=== PATIENT | female | born 1955 | race Caucasian/White ===

== ENCOUNTER 2022-11-03 20:35 | Emergency (ER) | payer OTHER ==
--- NOTE | 2022-11-03 20:58 | ER ---
Nurse's Notes [facility] Name: Halina Wen Age: 67 yrs Sex: Female : 1955 Arrival Date: 11/03/2022 Time: 20:38 Bed Waiting Private MD: Diagnosis: Essential (primary) hypertension Presentation: 11/03 20:55 Chief complaint: Patient states: high blood pressure. Coronavirus screen: Vaccine kl status: Patient reports receiving the 2nd dose of the covid vaccine. Ebola Screen: Patient negative for fever greater than or equal to 101.5 degrees Fahrenheit, and additional compatible Ebola Virus Disease symptoms. Initial Sepsis Screen: Does the patient meet any 2 criteria? No. Patient's initial sepsis screen is negative. Does the patient have a suspected source of infection? No. Patient's initial sepsis screen is negative. Risk Assessment: Do you want to hurt yourself or someone else? Patient reports no desire to harm self or others. 20:55 Method Of Arrival: Ambulatory 20:55 Acuity: JULIA 5 Vital Signs: 20:55 BP 183 / 66; Pulse 76; Resp 18; Temp 98.3(TE); Pulse Ox 97% on R/A; Pain 0/10; kl 20:55 Pain Scale: Adult ED Course: 20:38 Patient arrived in ED. [email or web address] 20:40 Ancelmo Galindo DO is Attending Physician. ms3 20:56 Triage completed. Administered Medications: No medications were administered Outcome: 20:57 Discharge ordered by . ms3 Signatures: Ashly Pruett RN JOE Ancelmo Galindo DO DO ms3 Yvonne Guardado [email or web address]
--- NOTE | 2022-11-03 20:58 | EDPHYS ---
Physician Documentation [facility] Name: Halina Wen Age: 67 yrs Sex: Female : 1955 Arrival Date: 11/03/2022 Time: 20:38 Bed Waiting Private MD: ED Physician Ancelmo Galindo Vital Signs: 11/03 20:55 BP 183 / 66; Pulse 76; Resp 18; Temp 98.3(TE); Pulse Ox 97% on R/A; Pain 0/10; kl 20:55 Pain Scale: Adult kl MDM: 20:54 Patient medically screened. ms3 Administered Medications: No medications were administered Disposition Summary: 11/03/22 20:57 Discharge Ordered Location: Home ms3 Condition: Stable ms3 Diagnosis - Essential (primary) hypertension ms3 Followup: ms3 - With: Private Physician - When: 2 - 3 days - Reason: Recheck today's complaints Discharge Instructions: - Discharge Summary Sheet ms3 - Hypertension, Adult ms3 Forms: - Medication Reconciliation Form ms3 - Thank You Letter ms3 - Antibiotic Education ms3 - Prescription Opioid Use ms3 Signatures: Ancelmo Galindo, DO ms3
[2022-11-04 00:44] VITALS: TEMP 98.3; O2SAT 97
[2022-11-04 00:45] VITALS: BP 163/67
== END 2022-11-03 21:08 | disposition home or self-care (01) ==
LOC: ER 20:35
DX: I10 Essential (primary) hypertension (principal)
CPT/HCPCS: 99281

== ENCOUNTER 2024-08-16 12:47 | Emergency (ER) | payer BC ==
[2024-08-16] MEDS ORDERED: NA CHLORIDE 0.9% 1,000 ML ONE (16:00)
[2024-08-16 16:10] LABS: Absolute Basophils 0.1 K/uL (0-0.5); Absolute Eosinophils 0.3 K/uL (0-0.5); Absolute Lymphocytes (CBC) 2.2 K/uL (0.7-4.9); Absolute Monocytes 1.1 K/uL (0.1-1.3); Absolute Neutrophil 10.4 K/uL (1.8-8.0); Basophils % 0.9 % (0-1.3); Eosinophils % 2.2 % (0-4.4); Hematocrit 44.3 % (36.0-45.0); Hemoglobin 14.1 g/dL (12.0-15.0); Lymphocytes % 15.3 % (15.3-44.8); MCH 32.1 pg (27.0-35.0); MCHC 31.9 g/dL (32.0-36.0); MCV 100.5 fL (80-100); MPV 9.2 fL (7.6-11.3); Monocytes % 7.8 % (3.3-12.3); Neutrophils % 73.8 % (41.7-73.7); Nucleated Red Blood Cells % 0.1 % (0-0); Platelets 211 thou/uL (152-406); RBC Red Blood Cell Count 4.41 M/uL (3.86-4.86); Red Cell Distribution Width 14.7 % (12.1-15.2)
[2024-08-16 16:21] LABS: PT Prothrombin Time 16.5 SECONDS (9.4-12.5); Protime INR 1.49
--- NOTE | 2024-08-16 17:50 | ER ---
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 hb Coronavirus screen: Client presents with at least one sign or symptom that may indicate coronavirus-19. Provider contacted for isolation considerations. Ebola Screen: No symptoms or risks identified at this time. Initial Sepsis Screen: Does the patient meet any 2 criteria? No. Patient's initial sepsis screen is negative. Does the patient have a suspected source of infection? No. Patient's initial sepsis screen is negative. Risk Assessment: Do you want to hurt yourself or someone else? Patient reports no desire to harm self or others. Onset of symptoms was August 13, 2024. 13:05 Method Of Arrival: Ambulatory hb 13:05 Acuity: JULIA 4 hb Triage Assessment: 13:10 General: Appears in no apparent distress. comfortable, Behavior is calm, cooperative. rs5 Historical: - Allergies: 13:06 No Known Allergies; hb - PMHx: 13:06 CAD; Hypertensive disorder; PVD; hb 13:07 HTN; hb - PSHx: 13:06 multiple stents; hb - Immunization history:: Adult Immunizations up to date. - Infectious Disease History:: Denies. - Social history:: Smoking status: Patient reports the use of cigarette tobacco products, smokes one-half pack cigarettes per day. - Family history:: not pertinent. Screenin:00 [facility] ED Fall Risk Assessment (Adult) History of falling in the last 3 months, rs5 including since admission No falls in past 3 months (0 pts) Confusion or Disorientation No (0 pts) Intoxicated or Sedated No (0 pts) Impaired Gait No (0 pts) Mobility Assist Device Used No (0 pt) Altered Elimination No (0 pt) Score/Fall Risk Level 0 - 2 = Low Risk Oriented to surroundings, Maintained a safe environment. Abuse screen: Denies threats or abuse. Nutritional screening: No deficits noted. Tuberculosis screening: No symptoms or risk factors identified. Assessment: 13:05 General: Appears in no apparent distress. uncomfortable, Behavior is calm, cooperative. rs5 Pain: Denies pain. Neuro: Level of Consciousness is awake, alert, obeys commands, Oriented to person, place, time, situation. Cardiovascular: Patient's skin is warm and dry. Respiratory: Airway is patent Respiratory effort is even, unlabored, Respiratory pattern is regular, symmetrical. GI: Abdomen is round non-distended, Abd is soft and non tender X 4 quads. : No signs and/or symptoms were reported regarding the genitourinary system. EENT: Reports bleeding from nose. 13:05 Derm: Skin is intact, Skin is pink, warm \T\ dry. Musculoskeletal: Range of motion: rs5 intact in all extremities. 13:10 Reassessment: no active bleeding noted. rs5 14:15 Reassessment: Patient and/or family updated on plan of care and expected duration. Pain rs5 level reassessed. Patient is alert, oriented x 3, equal unlabored respirations, skin warm/dry/pink. 15:50 Reassessment: Patient and/or family updated on plan of care and expected duration. Pain rs5 level reassessed. Patient is alert, oriented x 3, equal unlabored respirations, skin warm/dry/pink. 17:10 Reassessment: Patient and/or family updated on plan of care and expected duration. Pain rs5 level reassessed. Patient is alert, oriented x 3, equal unlabored respirations, skin warm/dry/pink. 18:10 Reassessment: Patient and/or family updated on plan of care and expected duration. Pain rs5 level reassessed. Patient is alert, oriented x 3, equal unlabored respirations, skin warm/dry/pink. Vital Signs: 13:05 BP 176 / 105; Pulse 89; Resp 20; Temp 98.7(TE); Pulse Ox 96% on R/A; Weight 81.65 kg; hb Height 5 ft. 3 in. ; Pain 3/10; 18:30 BP 155 / 88; Pulse 81; Resp 17; Pulse Ox 95% on R/A; rs5 13:05 Body Mass Index 31.89 (81.65 kg, 160.02 cm) hb 13:05 Pain Scale: Adult hb ED Course: 12:49 Patient arrived in ED. mr 13:06 Triage completed. hb 13:07 Arm band placed on. hb 13:19 Domingo Diaz MD is Attending Physician. paige 16:02 PT-INR Sent. cc6 16:02 Comprehensive Metabolic Panel Sent. cc6 16:02 CBC with Diff Sent. cc6 16:02 Initial lab(s) drawn, by me, sent to lab. Inserted saline lock: 20 gauge in right cc6 antecubital area, using aseptic technique. Blood collected. Flushed with 10 mL NS. 17:14 Comprehensive Metabolic Panel Sent. ss 17:49 Hanny Canada MD is Referral Physician. paige 18:30 Patient has correct armband on for positive identification. Placed in gown. Bed in low rs5 position. Call light in reach. Side rails up X2. 18:30 No provider procedures requiring assistance completed. rs5 18:30 IV discontinued, intact, bleeding controlled, No redness/swelling at site. Pressure rs5 dressing applied. 18:35 Endy Delgado, RN is Primary Nurse. rs5 18:35 Provided Education on: discharge instructions . rs5 Administered Medications: 16:08 Drug: NS 0.9% IV 500 ml 500 ml IV at 1 bolus once; to be given as a bolus over 30 hb minutes Volume: 500 ml; Route: IV; Rate: 1 bolus; Site: right antecubital; 17:13 Follow up: IV Status: Completed infusion; IV Intake: 500ml ss 17:30 Drug: Cabgtmiw-Gstcgdjouc-Zrlgoyiaj Topical Ointment 1 application Topical once {Note: rs5 nostrils.} Route: Topical; Site: affected area; 17:30 Drug: Amoxicillin-Clavulanate PO 875 mg PO once Route: PO; rs5 18:22 Follow up: Response: No adverse reaction rs5 17:45 Drug: Norvasc PO 10 mg PO once Route: PO; rs5 18:30 Follow up: Response: No adverse reaction rs5 18:00 Drug: Potassium PO Effervescent Tablet 50 mEq PO once; dissolve in 4 ounces of water or rs5 juice Route: PO; 18:40 Follow up: Response: No adverse reaction rs5 18:00 Drug: Potassium PO Effervescent Tablet 25 mEq PO once; dissolve in 4 ounces of water or rs5 juice Route: PO; 18:33 Follow up: Response: No adverse reaction rs5 Medication: 18:30 VIS not applicable for this client. rs5 Intake: 17:13 IV: 500ml; Total: 500ml. Outcome: 17:49 Discharge ordered by . paige 18:34 Discharged to home ambulatory, rs5 18:34 Condition: stable rs5 18:34 Discharge instructions given to patient, family, Instructed on discharge instructions, follow up and referral plans. medication usage, Demonstrated understanding of instructions, follow-up care, medications, Prescriptions given X 4, 18:35 Patient left the ED. rs5 Signatures: Domingo Diaz MD MD cha Rivera, Mary, Reg Reg mr Onelia Alegria RN RN Keri Amador RN RN Endy Goodson RN RN rs5 Jeane Bowman cc6 Corrections: (The following items were deleted from the chart) 13:07 13:06 PMHx: HTN (multiple stents); hb hb
--- NOTE | 2024-08-16 17:50 | EDPHYS ---
Physician Documentation [facility] Name: Halina Wen Age: 69 yrs Sex: Female : 1955 Arrival Date: 08/16/2024 Time: 12:47 Bed DX5 Private MD: ED Physician Domingo Diaz HPI: 08/16 17:46 This 69 yrs old Female presents to ER via Ambulatory with complaints of Nose paige Bleed. 17:46 The patient presents with a nose bleed, that is apparently anterior. Onset: The paige symptoms/episode began/occurred just prior to arrival, today. Modifying factors: The symptoms are alleviated by nothing. the symptoms are aggravated by nothing. Associated signs and symptoms: The patient has no apparent associated signs or symptoms. Severity of symptoms: At their worst the symptoms were mild in the emergency department the symptoms have resolved and did so just prior to arrival. The patient has experienced similar episodes in the past, several times. Historical: - Allergies: 13:06 No Known Allergies; hb - PMHx: 13:06 CAD; Hypertensive disorder; PVD; hb 13:07 HTN; hb - PSHx: 13:06 multiple stents; hb - Immunization history:: Adult Immunizations up to date. - Infectious Disease History:: Denies. - Social history:: Smoking status: Patient reports the use of cigarette tobacco products, smokes one-half pack cigarettes per day. - Family history:: not pertinent. ROS: 17:46 Constitutional: Negative for fever, chills, and weight loss, Eyes: Negative for injury, paige pain, redness, and discharge, Neck: Negative for injury, pain, and swelling, Cardiovascular: Negative for chest pain, palpitations, and edema, Respiratory: Negative for shortness of breath, cough, wheezing, and pleuritic chest pain, Abdomen/GI: Negative for abdominal pain, nausea, vomiting, diarrhea, and constipation, Back: Negative for injury and pain, MS/Extremity: Negative for injury and deformity, Skin: Negative for injury, rash, and discoloration, Neuro: Negative for headache, weakness, numbness, tingling, and seizure, Psych: Negative for depression, anxiety, suicide ideation, homicidal ideation, and hallucinations, Allergy/Immunology: Negative for hives, rash, and allergies, Endocrine: Negative for neck swelling, polydipsia, polyuria, polyphagia, and marked weight changes, Hematologic/Lymphatic: Negative for swollen nodes, abnormal bleeding, and unusual bruising, 17:46 ENT: Positive for nose bleed, Exam: 17:46 Constitutional: This is a well developed, well nourished patient who is awake, alert, paige and in no acute distress. Head/Face: Normocephalic, atraumatic. Eyes: Pupils equal round and reactive to light, extra-ocular motions intact. Lids and lashes normal. Conjunctiva and sclera are non-icteric and not injected. Cornea within normal limits. Periorbital areas with no swelling, redness, or edema. Neck: Trachea midline, no thyromegaly or masses palpated, and no cervical lymphadenopathy. Supple, full range of motion without nuchal rigidity, or vertebral point tenderness. No Meningismus. Chest/axilla: Normal chest wall appearance and motion. Nontender with no deformity. No lesions are appreciated. Cardiovascular: Regular rate and rhythm with a normal S1 and S2. No gallops, murmurs, or rubs. Normal PMI, no JVD. No pulse deficits. Respiratory: Lungs have equal breath sounds bilaterally, clear to auscultation and percussion. No rales, rhonchi or wheezes noted. No increased work of breathing, no retractions or nasal flaring. Abdomen/GI: Soft, non-tender, with normal bowel sounds. No distension or tympany. No guarding or rebound. No evidence of tenderness throughout. Back: No spinal tenderness. No costovertebral tenderness. Full range of motion. Skin: Warm, dry with normal turgor. Normal color with no rashes, no lesions, and no evidence of cellulitis. MS/ Extremity: Pulses equal, no cyanosis. Neurovascular intact. Full, normal range of motion., bilateral aka Neuro: Awake and alert, GCS 15, oriented to person, place, time, and situation. Cranial nerves II-XII grossly intact. Motor strength 5/5 in all extremities. Sensory grossly intact. Cerebellar exam normal. Normal gait. Psych: Awake, alert, with orientation to person, place and time. Behavior, mood, and affect are within normal limits. 17:46 ENT: Nose: Nasal mucosa: edematous, erythematous, Posterior pharynx: no acute changes, Airway: normal, no evidence of obstruction, Tonsils: are normal in appearance, Uvula: normal, swelling, is not appreciated, Vital Signs: 13:05 BP 176 / 105; Pulse 89; Resp 20; Temp 98.7(TE); Pulse Ox 96% on R/A; Weight 81.65 kg; hb Height 5 ft. 3 in. ; Pain 3/10; 18:30 BP 155 / 88; Pulse 81; Resp 17; Pulse Ox 95% on R/A; rs5 13:05 Body Mass Index 31.89 (81.65 kg, 160.02 cm) hb 13:05 Pain Scale: Adult hb MDM: 13:19 Medical Screening Exam initiated paige 17:47 Differential diagnosis: spontaneous epistaxis. Data reviewed: vital signs, nurses [facility] notes, lab test result(s). Consideration of Admission/Observation Escalation of care including admission/observation considered. I considered the following discharge prescriptions or medication management in the emergency department Medications were administered in the Emergency Department. See MAR. Test considered but Not performed: CT: NO CT SINUS. Historians other than the Patient: PT WELL INFORMED. Care significantly affected by the following chronic conditions: Hypertension, Obesity, PVD, CAD. 08/16 13:20 Order name: CBC with Diff; Complete Time: 17:38 [facility] 08/16 13:20 Order name: Comprehensive Metabolic Panel; Complete Time: 18:04 [facility] 08/16 13:20 Order name: PT-INR; Complete Time: 17:38 [facility] 08/16 16:20 Order name: Labs - recollect needed: recollect green top/ per lorna hemolyzed; eb Complete Time: 17:13 08/16 18:05 Order name: PO challenge: JUICE; Complete Time: 18:44 [facility] Administered Medications: 16:08 Drug: NS 0.9% IV 500 ml 500 ml IV at 1 bolus once; to be given as a bolus over 30 hb minutes Volume: 500 ml; Route: IV; Rate: 1 bolus; Site: right antecubital; 17:13 Follow up: IV Status: Completed infusion; IV Intake: 500ml ss 17:30 Drug: Ezsagvsq-Vgxqrdrslz-Cmmgshrox Topical Ointment 1 application Topical once {Note: rs5 nostrils.} Route: Topical; Site: affected area; 17:30 Drug: Amoxicillin-Clavulanate PO 875 mg PO once Route: PO; rs5 18:22 Follow up: Response: No adverse reaction rs5 17:45 Drug: Norvasc PO 10 mg PO once Route: PO; rs5 18:30 Follow up: Response: No adverse reaction rs5 18:00 Drug: Potassium PO Effervescent Tablet 50 mEq PO once; dissolve in 4 ounces of water or rs5 juice Route: PO; 18:40 Follow up: Response: No adverse reaction rs5 18:00 Drug: Potassium PO Effervescent Tablet 25 mEq PO once; dissolve in 4 ounces of water or rs5 juice Route: PO; 18:33 Follow up: Response: No adverse reaction rs5 Disposition Summary: 08/16/24 17:49 Discharge Ordered Notes: Location: Home paige Problem: new paige Symptoms: have improved paige Condition: Stable paige Diagnosis - 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 paige - Essential (primary) hypertension paige - Hypokalemia paige Followup: paige - With: Private Physician - When: 2 - 3 days - Reason: Recheck today's complaints, Continuance of care, Re-evaluation by your physician Followup: paige - With: Hanny Canada MD - When: 2 - 3 days - Reason: Recheck today's complaints, Re-evaluation by your physician Discharge Instructions: - Discharge Summary Sheet paige - Potassium Content of Foods paige - Nosebleed, Adult paige - Hypertension, Adult paige - Cool Mist Vaporizer paige - Hypertension, Adult, Ehie-nh-Ehem paige - How to Take Your Blood Pressure, Eqxu-ly-Tidf paige - Nosebleed, Adult, Zvtj-ix-Sgza paige - Hypokalemia paige - Managing Your Hypertension [facility] Forms: - Medication Reconciliation Form paige - Antibiotic Education paige - Prescription Opioid Use paige - Patient Portal Instructions [facility] - Leadership Thank You Letter [facility] Prescriptions: - Neosporin (xfx-xih-quyqk) 3.5mg-400 unit- 5,000 unit/gram Topical ointment - apply 1 application TOPICAL route 3 times per day RIGHT NARES; 15 gram tube; paige Refills: 0, Product Selection Permitted - Augmentin 875-125 mg Oral Tablet - take 1 tablet ORAL route every 12 hours for 10 days; 20 tablet; Refills: 0, paige Product Selection Permitted - Norvasc 5 mg Oral Tablet - take 1 tablet ORAL route once daily; 20 tablet; Refills: 0, Product Selection paige Permitted - Potassium Chloride 20 meq Oral Packet - take 1 packet ORAL route every 12 hours 1 packet in 6 (six) ounces of water or paige juice; Take after meal; 14 packet; Refills: 0, Product Selection Permitted Signatures: Dispatcher [employer] Domingo Roldan MD MD cha Baxter, Heather, RN RN Lucina Caicedo Ricky, RN RN rs5 Onelia Alegria RN ss Corrections: (The following items were deleted from the chart) 13:07 13:06 PMHx: HTN (multiple stents); hb hb
[2024-08-16 17:55] LABS: AST/SGOT 12 U/L (15-37); Albumin 2.3 g/dL (3.4-5.0); Albumin/Globulin Ratio 0.5 (1.1-1.8); Alkaline Phosphatase 91 U/L (45-117); Anion Gap 6.6 mEq/L (5.0-15.0); BUN Blood Urea Nitrogen 13 mg/dL (7-18); Bicarbonate 32 mEq/L (21-32); Bilirubin Total 0.4 mg/dL (0.2-1.0); Globulin 4.4 g/dL (2.3-3.5); Glomerular Filtration Rate 80 ml/min (=/>90); Glucose Level 130 mg/dL (74-106); Protein, Total 6.7 g/dL (6.4-8.2); Sodium Level 139 mEq/L (136-145)
[2024-08-16 17:57] LABS: ALT/SGPT < 14 U/L (13-56)
[2024-08-16 17:59] LABS: Potassium 2.6 mEq/L (3.5-5.1)
[2024-08-16] MEDS ORDERED: AMLODIPINE 10 MG TAB ONE (18:06)
[2024-08-16] MEDS ORDERED: AMOX/K CLAV 875 MG TAB ONE (18:06)
[2024-08-16] MEDS ORDERED: BACI/NEOMYCIN/POLY OINT 15GM TOP ONE (18:06)
[2024-08-16] MEDS ORDERED: POTASSIUM 25 MEQ EFFERV TAB ONE ×2 (18:07→18:13)
[2024-08-16 20:10] VITALS: BP 176/105; TEMP 98.7; O2SAT 96
== END 2024-08-16 18:35 | disposition home or self-care (01) ==
LOC: ER 12:47
DX: R04.0 Epistaxis (principal); Z79.01 Long term (current) use of anticoagulants; I10 Essential (primary) hypertension; E87.6 Hypokalemia; F17.210 Nicotine dependence, cigarettes, uncomplicated
CPT/HCPCS: 36415; 80053; 85025; 85610; 96360; 99284; J7030

== ENCOUNTER 2024-12-23 19:41 | Emergency (ER) | payer BC ==
--- OUTSIDE RECORDS SUMMARY | 2024-12-23 19:44 | XMS REPORT | Continuity of Care Document ---
Author Name Unknown Address [address] [facility] [address] [place] [address] [facility] Address [address] [facility] [place] [address] Care Team Providers Care Inventory Management Specialist Name Role Phone Fausto LOVELACE, Pito Burr Primary Care Physician SANTOSH WILKERSON Attending Clinician Unavailable Medications Ordered Medication Name Filled Medication Name Start Date Stop Date Current Medication? Ordering Clinician Indication Dosage Frequency Signature (SIG) Comments Components Source Advair Diskus 250 mcg-50 mcg/dose powder for inhalation 10-30 00:00: 00 Yes 1mcg/do se Henok Bee metoprolol succinate ER 100 mg tablet,exte nded release 24 hr 09-03 00:00: 00 Yes 1mg Henok Bee clopidogrel 75 mg tablet 09-03 00:00: 00 Yes 1mg Henok Bee isosorbide mononitrate ER 120 mg tablet,exte nded release 24 hr 09-03 00:00: 00 Yes 1mg Henok Bee hydrochloro thiazide 25 mg tablet 09-03 00:00: 00 Yes 1mg Henok Bee escitalopra m 10 mg tablet 09-03 00:00: 00 Yes 1mg Henok Bee rosuvastati n 5 mg tablet 09-03 00:00: 00 Yes 1mg Henok Bee prednisone 10 mg tablet 09-03 00:00: 00 Yes 1mg Henok Bee levothyroxi ne 200 mcg tablet 09-03 00:00: 00 Yes 1mcg Henok Bee chlorthalid one 25 mg tablet 2023-08- 00:00: 00 Yes mg Henok Bee olmesartan 40 mg tablet 2023-08 00:00: 00 Yes mg Henok Bee Vital Signs Vital Name Observation Time Observation Value Comments S chyna BP Systolic 2024-10-30 09:34:00 173 mm[Hg] Step hen F Rohit BP Diastolic 2024-10-30 09:34:00 67 mm[Hg] Len phen F Rohit Weight Measured 2024-10-30 09:34:00 190.60 pounds Henok F Rohit Height Measured 2024-10-30 09:34:00 63.00 inches Henok Lizzie Bee Body Temperature 2024-10-30 09:34:00 98.50 degrees Henok F Rohit Heart Rate 2024-10-30 09:34:00 55.00 /min Jaymie en F Rohit Respiratory Rate 2024-10-30 09:34:00 14.00 /min Henok F Rohit Respiratory Rate 2024-09-03 14:25:00 18.00 /min Henok F Rohit BP Systolic 2024-09-03 14:25:00 160 mm[Hg] Step hen F Rohit BP Diastolic 2024-09-03 14:25:00 61 mm[Hg] Len phen F Rohit Weight Measured 2024-09-03 14:25:00 186.40 pounds Henokrajni Bee Height Measured 2024-09-03 14:25:00 63.00 inches Henokrajni Bee Body Temperature 2024-09-03 14:25:00 98.00 degrees Henok F Rohit Heart Rate 2024-09-03 14:25:00 64.00 /min Jaymie en F Rohit Encounters Start Date/Time End Date/Time Encounter Type Admission Type Attending [facility] Facility Care Department Encounter ID Source 2024-10-30 09:31:49 2024-10-30 09:31:49 Outpatient [facility] [id number] Henok Bee 2024-10-30 00:00:00 2024-10-30 00:00:00 Outpatient Visit [facility] [id number] Henok Bee 2024-10-06 05:43:00 2024-10-06 05:43:00 Outpatient [facility] [id number] [facility] 2024-09-03 14:21:47 2024-09-03 14:21:47 Outpatient [facility] [id number] Henok Bee 2024-09-03 00:00:00 2024-09-03 00:00:00 Outpatient Visit [facility] [id number] Henok Bee Notes Date/Time Note Provider Source Henok Bee [facility]2025-01-15 00:00:00 Henok Bee [facility]
[2024-12-23] MEDS ORDERED: PANTOPRAZOLE 40 MG INJ ONE (21:02)
[2024-12-23] MEDS ORDERED: NA CHLORIDE 0.9% 250 ML ONE (21:02)
[2024-12-23] MEDS ORDERED: FAMOTIDINE 20 MG/2 ML VIAL IV ONE (21:02)
[2024-12-23 21:07] LABS: Absolute Basophils 0.1 K/uL (0-0.5); Absolute Eosinophils 0.2 K/uL (0-0.5); Absolute Lymphocytes (CBC) 1.7 K/uL (0.7-4.9); Absolute Monocytes 1.1 K/uL (0.1-1.3); Absolute Neutrophil 9.9 K/uL (1.8-8.0); Basophils % 0.7 % (0-1.3); Eosinophils % 1.2 % (0-4.4); Hematocrit 41.2 % (36.0-45.0); Lymphocytes % 13.2 % (15.3-44.8); MCH 32.8 pg (27.0-35.0); MCHC 33.8 g/dL (32.0-36.0); MCV 96.9 fL (80-100); MPV 8.6 fL (7.6-11.3); Monocytes % 8.7 % (3.3-12.3); Neutrophils % 76.2 % (41.7-73.7); Platelets 203 thou/uL (152-406); RBC Red Blood Cell Count 4.25 M/uL (3.86-4.86); Red Cell Distribution Width 16.1 % (12.1-15.2)
[2024-12-23 21:18] LABS: PT Prothrombin Time 16.4 SECONDS (10-13.0); Protime INR 1.46
--- NOTE | 2024-12-23 21:26 | RAD REPORT ---
EXAMINATION: ONE VIEW CHEST XR CLINICAL INDICATION: Female, 69 years old.,CHEST PAIN TECHNIQUE: Frontal chest projection is submitted. Examination is limited by patient positioning and t echnique. COMPARISON: 09/05/2024 FINDINGS: The lungs are well inflated and clear apart from stable left basilar atelectasis. No pneumothorax or sizable effusion. The heart is normal in size. Mediastinal contours are unremarkable. IMPRESSION: No acute intrathoracic abnormalities.
[2024-12-23 21:33] LABS: Albumin 2.7 g/dL (3.4-5.0); Albumin/Globulin Ratio 0.6 (1.1-1.8); Anion Gap 7.4 mEq/L (5.0-15.0); Bilirubin Direct 0.2 mg/dL (0-0.2); Bilirubin Indirect, Calculated 0.3 mg/dL (0.2-0.8); Bilirubin Total 0.5 mg/dL (0.2-1.0); Globulin 4.2 g/dL (2.3-3.5); Magnesium 1.4 mg/dL (1.6-2.4); Potassium 3.4 mEq/L (3.5-5.1); Protein, Total 6.9 g/dL (6.4-8.2); Troponin High Sensitivity 4.1 pg/mL (<58.9)
--- NOTE | 2024-12-24 00:30 | EDPHYS ---
Physician Documentation [facility] Name: Halina Wen Age: 69 yrs Sex: Female : 1955 Arrival Date: 12/23/2024 Time: 19:41 Bed 4 Private MD: ED Physician Pipo De Dios HPI: 12/23 20:05 This 69 yrs old Female presents to ER via Ambulatory with complaints of Chest sp4 Pain, Bloody Stools. 12/24 00:23 69-year-old female presents with 1 week of bloody stools and developing chest pain in sp4 the last 24 hours.. 00:24 Patient states she is on Plavix and Eliquis at home. Patient takes Eliquis 5 mg twice sp4 daily also Plavix 75 mg daily. Historical: - Allergies: 12/23 19:50 No Known Allergies; cp4 - PMHx: 19:50 CAD; HTN; Hypertensive disorder; PVD; cp4 - PSHx: 19:50 multiple stents; cp4 - Immunization history:: Adult Immunizations up to date. - Infectious Disease History:: Denies. - Social history:: Smoking status: Patient reports the use of cigarette tobacco products, smokes one pack cigarettes per day. - Family history:: not pertinent. ROS: 12/24 00:24 Constitutional: Negative for fever, chills, and weight loss, positive bloody stools. sp4 Positive chest pain Eyes: Negative for injury, pain, redness, and discharge, All other systems are negative, Exam: 00:26 Constitutional: This is a well developed, well nourished patient who is awake, alert, sp4 and in no acute distress. Head/Face: Normocephalic, atraumatic. Eyes: Pupils equal round and reactive to light, extra-ocular motions intact. Lids and lashes normal. Conjunctiva and sclera are not injected. Cornea within normal limits. Periorbital areas with no swelling, redness, or edema. ENT: Nares patent. No nasal discharge, no septal abnormalities noted. Tympanic membranes are normal and external auditory canals are clear. Oropharynx with no redness, swelling, or masses, exudates, or evidence of obstruction, uvula midline. Mucous membranes moist. Neck: Trachea midline, no thyromegaly or masses palpated, and no cervical lymphadenopathy. Supple, full range of motion without nuchal rigidity, or vertebral point tenderness. Chest/axilla: Normal chest wall appearance and motion. Nontender with no deformity. No lesions are appreciated. Cardiovascular: Regular rate and rhythm with a normal S1 and S2. No gallops, murmurs, or rubs. Normal PMI, no JVD. No pulse deficits. Respiratory: Lungs have equal breath sounds bilaterally, clear to auscultation and percussion. No rales, rhonchi or wheezes noted. No increased work of breathing, no retractions or nasal flaring. Abdomen/GI: Soft, with normal bowel sounds. No distension or tympany. No guarding or rebound. No evidence of tenderness throughout. Back: No spinal tenderness. No costovertebral tenderness. 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 Normal color with no rashes, no lesions, and no evidence of cellulitis. MS/ Extremity: Pulses equal, no cyanosis. Neurovascular intact. Full, normal range of motion. Neuro: Awake and alert, GCS 15, oriented to person, place, time, and situation. Cranial nerves II-XII grossly intact. Motor strength 5/5 in all extremities. Sensory grossly intact. Psych: Awake, alert, with orientation to person, place and time. Behavior, mood, and affect are within normal limits 00:26 ECG was reviewed by the Attending Physician. EKG 1955 normal Vital Signs: 12/23 19:48 BP 170 / 62; Pulse 74; Resp 20; Temp 98.4; Pulse Ox 92% ; Weight 86.18 kg; Height 5 ft. cp4 3 in. ; Pain 5/10; 21:30 BP 164 / 65; Pulse 68; Resp 18; Pulse Ox 93% ; al5 22:00 BP 170 / 65; Pulse 72; Resp 18; Pulse Ox 92% on R/A; al5 22:30 BP 166 / 59; Pulse 70; Resp 18; Pulse Ox 93% on R/A; al5 23:00 BP 149 / 60; Pulse 77; Resp 18; Pulse Ox 93% ; al5 23:30 BP 187 / 59; Pulse 82; Resp 17; Pulse Ox 94% on R/A; al5 12/24 00:00 BP 143 / 66; Pulse 69; Resp 16; Pulse Ox 93% ; al5 00:30 BP 141 / 53; Pulse 72; Resp 16; Pulse Ox 92% ; al5 12/23 19:48 Body Mass Index 33.66 (86.18 kg, 160.02 cm) cp4 12/23 19:48 Pain Scale: Adult cp4 [place] Coma Score: 00:26 Eye Response: spontaneous(4). Motor Response: obeys commands(6). Verbal Response: sp4 oriented(5). Total: 15. MDM: 12/23 20:16 Medical Screening Exam initiated sp4 12/24 00:23 ED course: EXAMINATION: ONE VIEW CHEST XR CLINICAL INDICATION: Female, 69 years sp4 old.,CHEST PAIN TECHNIQUE: Frontal chest projection is submitted. Examination is limited by patient positioning and technique. COMPARISON: 09/05/2024 FINDINGS: The lungs are well inflated and clear apart from stable left basilar atelectasis. No pneumothorax or sizable effusion. The heart is normal in size. Mediastinal contours are unremarkable. IMPRESSION: No acute intrathoracic abnormalities.. 00:24 HEART Score: History: Slightly Suspicious (0), ECG: Normal (0), Age: > or = 65 years sp4 (2), Risk Factors: > or = 3 Risk factors for atherosclerotic disease (2), Troponin: < or = 1 x Normal Limit (0), Total Score = 4. Data reviewed: vital signs, nurses notes, lab test result(s), EKG, radiologic studies, CT scan, plain films. 00:28 Differential diagnosis: acute pericarditis, anxiety, chest wall pain, esophagitis, sp4 gastritis, pancreatitis, peptic ulcer disease, pericarditis. Consideration of Admission/Observation Escalation of care including admission/observation considered. ED course: Patient was advised to be transferred to [place] for assessment by gastroenterology.. Patient at this time declines transfer and reports that she would like to follow-up with Dr. Gurdeep Seay, for evaluation for outpatient colonoscopy.. ED course: Hemoglobin stable at this time. Patient deemed stable for discharge home with informed discharge instructions. Patient was advised to return show bleeding get worse. And patient will be referred to Dr. Gurdeep Seay with GI office locally . 01:17 ED course: PROCEDURE: Multiple transaxial tomograms of the abdominal aorta were sp4 performed utilizing 3 mm slight thickness at 3 mm interval reconstruction from the lung bases to the ischial tuberosities, before and after the administration of large bolus of IV contrast for complete opacification of the abdominal aorta and iliac arteries. 2-D and 3-D multiplanar reformats, volume rendering technique and maximum intensity projection images were generated and reviewed. An individualized dose optimization technique, Automated Exposure Control, was utilized for the performed procedure. Findings: Atherosclerotic calcifications in the abdominal aorta without aneurysmal dilatation or evidence of dissection. There is a patent stent within the infrarenal portion of the abdominal aorta. Atherosclerotic calcifications in bilateral common iliac arteries without significant stenosis and/or occlusion. The celiac trunk demonstrated atherosclerotic disease at the origin with the presence of a stent. 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 Via collaterals inferior mesenteric artery feeds the SMA. There are single bilateral renal arteries with the presence of minimal peripheral atheromatous plaque at the origin/proximal aspect with no evidence for significant stenosis. Lung bases: Lung parenchyma demonstrate minimal compressive atelectatic changes. Liver: The liver demonstrated presence of decreased attenuation corresponding to mild fatty infiltration. Gallbladder: Surgical clips within the gallbladder fossa corresponding to previous cholecystectomy. No significant biliary duct dilatation. Adrenal glands: The adrenal glands demonstrate to be normal. Pancreas: The pancreas demonstrate to be normal. Spleen: The spleen demonstrate to be within normal limits. Kidneys: The kidneys demonstrate normal uptake of contrast media. There is no evidence for nephrolithiasis and/or hydronephrosis. There is a medial mid/lower pole right renal cyst measuring 1.1 cm on image 67 GI: Grossly the unopacified stomach, small bowel and large bowel demonstrate to be within normal limits. No evidence for bowel dilatation and/or free air. The appendix was not visualized. The left-sided colon/sigmoid colon demonstrates presence of minimal diverticulosis. : The urinary bladder demonstrate to be suboptimal distention. There is a cystic structure within the base of the urinary bladder/urethra possibility of ureteral diverticulum could be of consideration on axial image 134/159 less likely the possibility of mullerian duct cyst could be of consideration. Genitalia: The uterus demonstrate to be within normal limits. There are normal adnexal structures. Retroperitoneum:There is no retroperitoneal lymphadenopathy. There is no evidence for ascites and/or abnormal fluid collections. Bones: The bones demonstrate to be demineralized. The lumbar spine demonstrate minimal degenerative changes lower lumbar spine with a finding suggesting fusion of the L5/S1 disc level. Soft tissues: The soft tissues demonstrate to be unremarkable. IMPRESSION: Occlusion of the superior mesenteric artery. There is stenosis within the origin of the inferior mesenteric artery. Via collaterals from inferior mesenteric artery feeds the SMA. Atherosclerotic disease in the abdominal aorta with patent stent within the infrarenal portion of the abdominal aorta just slightly above the origin of the inferior mesenteric artery. Mild fatty infiltration of the liver. Status post cholecystectomy. Right Bosniak I benign renal cyst measuring 1.1 cm. No follow-up imaging is recommended. . ED course: We have discussed CT report with the patient. 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 Also there is evidence of prior aortic stent. Abdominal aorta contains patent stent. This is problematic because we cannot advise patient to discontinue anticoagulation with Plavix and Eliquis. Patient again was advised to travel to [place] the official transfer and for consultation with wood buffer for acute lower gastrointestinal bleeding also consultation with vascular surgeon for moderate to severe occlusive disease in the mesenteric arteries. Patient has declined transfer and opted to be discharged home with outpatient gastroenterology follow-up. Patient was advised to return to the ER immediately in case of worsening symptoms or for any other medical concerns.. 12/23 20:06 Order name: Basic Metabolic Panel; Complete Time: 22:20 [facility] 12/23 20:06 Order name: CBC with Diff; Complete Time: 22:20 [facility] 12/23 20:06 Order name: LFT's; Complete Time: 22:20 [facility] 12/23 20:06 Order name: Magnesium; Complete Time: 22:20 [facility] 12/23 20:06 Order name: NT PRO-BNP; Complete Time: 22:20 4 12/23 20:06 Order name: PT-INR; Complete Time: 22:20 4 12/23 20:06 Order name: Troponin HS; Complete Time: 22:20 [facility] 12/23 20:06 Order name: Type And Screen; Complete Time: 22:20 4 12/23 20:06 Order name: XRAY Chest (1 view); Complete Time: 22:20 4 12/24 00:31 Order name: Pelvis Angio [facility] 12/24 00:32 Order name: Abdomen Angio [facility] 12/23 20:06 Order name: EKG; Complete Time: 20:06 sp4 12/23 20:06 Order name: Cardiac monitoring; Complete Time: 21:16 sp4 12/23 20:06 Order name: EKG - Nurse/Tech; Complete Time: 21:00 sp4 12/23 20:06 Order name: IV Saline Lock; Complete Time: 21:00 sp4 12/23 20:06 Order name: Labs collected and sent; Complete Time: :00 sp4 12/23 20:06 Order name: O2 Per Protocol; Complete Time: 21: sp4 12/23 20:06 Order name: O2 Sat Monitoring; Complete Time: : sp4 EC/06 19:56 Rate is 78 beats/min. Rhythm is regular, Normal Sinus Rhythm. QRS [place] is Normal. DC sp4 interval is normal. QRS interval is normal. QT interval is normal. No Q waves. T waves are Normal. No ST changes noted. Clinical impression: Normal ECG. Interpreted by me. Reviewed by me. Administered Medications: 21:16 Drug: Pantoprazole IV 8 mg/hr IV at 25 ml/hr continuous; (Standard dilution is 80 mg in al5 250 mL NS) Route: IV; Rate: 25 ml/hr; Site: right antecubital; 12/24 01:04 Follow up: Response: No adverse reaction; IV Status: Order to discontinue infusion; IV al5 Intake: 100ml 12/23 21:16 Drug: Pantoprazole IVP 80 mg IVP once Route: IVP; Site: right antecubital; al5 12/24 00:44 Follow up: Response: No adverse reaction al5 12/23 21:16 Drug: Famotidine IVP 20 mg IVP once; dilute with 10 mL 0.9% NaCl; give over 2 minutes al5 Route: IVP; Site: right antecubital; 12/24 00:44 Follow up: Response: No adverse reaction; Pain is decreased al5 Disposition Summary: 12/24/24 00:29 Discharge Ordered Problem: new sp4 Symptoms: have improved sp4 Condition: Stable sp4 Diagnosis - Acute lower GI bleed, noncardiac chest pain sp4 Followup: sp4 - With: Gurdeep Seay MD - When: 7 - 10 days - Reason: Recheck today's complaints Discharge Instructions: - Discharge Summary Sheet sp4 - Gastrointestinal Bleeding, [id number] sp4 Forms: - Patient Portal Instructions sp4 Prescriptions: - Protonix 40 mg Oral tablet, delayed release (enteric coated) - take 1 tablet ORAL route 2 times per day; 60 tablet; Refills: 0, Product sp4 Selection Permitted Signatures: Dispatcher [employer] Pipo Santacruz MD MD sp4 Kierra Flores cp4 Manju Rincon RN RN al5 Corrections: (The following items were deleted from the chart) 00:31 12/23 22:33 Abdomen Pelvis W [id number] ordered. EDMS EDMS
--- NOTE | 2024-12-24 00:30 | ER ---
Nurse's Notes [facility] Name: Halina Wen Age: 69 yrs Sex: Female : 1955 Arrival Date: 12/23/2024 Time: 19:41 Bed 4 Private MD: Diagnosis: Acute lower GI bleed, noncardiac chest pain Presentation: 12/23 19:48 Chief complaint: Patient states: bloody stools for 2 days and reports chest pain that cp4 started 30 minutes ago. Coronavirus screen: Client denies travel out of the [place] in the last 14 days. At this time, the client does not indicate any symptoms associated with coronavirus-19. Ebola Screen: Patient negative for fever greater than or equal to 101.5 degrees Fahrenheit, and additional compatible Ebola Virus Disease symptoms Patient denies exposure to infectious person. Patient denies travel to an Ebola-affected area in the 21 days before illness onset. No symptoms or risks identified at this time. Initial Sepsis Screen: Does the patient meet any 2 criteria? No. Patient's initial sepsis screen is negative. Does the patient have a suspected source of infection? No. Patient's initial sepsis screen is negative. Risk Assessment: Do you want to hurt yourself or someone else? Patient reports no desire to harm self or others. Onset of symptoms was December 20, 2024. 19:48 Method Of Arrival: Ambulatory cp4 19:48 Acuity: JULIA 3 cp4 Triage Assessment: 19:50 General: Appears in no apparent distress. uncomfortable, Behavior is calm, cooperative, cp4 appropriate for age. Pain: Complains of pain in chest Pain currently is 5 out of 10 on a pain scale. Cardiovascular: Reports chest pain, Patient's skin is warm and dry. Historical: - Allergies: 19:50 No Known Allergies; cp4 - PMHx: 19:50 CAD; HTN; Hypertensive disorder; PVD; cp4 - PSHx: 19:50 multiple stents; cp4 - Immunization history:: Adult Immunizations up to date. - Infectious Disease History:: Denies. - Social history:: Smoking status: Patient reports the use of cigarette tobacco products, smokes one pack cigarettes per day. - Family history:: not pertinent. Screenin:22 [facility] ED Fall Risk Assessment (Adult) History of falling in the last 3 months, me1 including since admission No falls in past 3 months (0 pts) Confusion or Disorientation No (0 pts) Intoxicated or Sedated No (0 pts) Impaired Gait No (0 pts) Mobility Assist Device Used No (0 pt) Altered Elimination No (0 pt) Score/Fall Risk Level 0 - 2 = Low Risk Maintained a safe environment, Provided non-skid footwear, Hourly rounding (assess needs \T\ fall precautionary measures) done. Abuse screen: Denies threats or abuse. Nutritional screening: No deficits noted. Tuberculosis screening: No symptoms or risk factors identified. Assessment: 21:22 General: Appears uncomfortable, well groomed, well developed, well nourished, Behavior me1 is calm, cooperative, appropriate for age, Reports bloody stools for 2 days and reports chest pain that started 30 minutes ago. Pain: Complains of pain in chest Pain does not radiate. Pain currently is 5 out of 10 on a pain scale. Quality of pain is described as pressure, Pain began 30 min ago. Is continuous. Neuro: Level of Consciousness is awake, alert, obeys commands, Oriented to person, place, time, situation, Appropriate for age. Cardiovascular: Reports chest pain, Patient's skin is warm and dry. Respiratory: Airway is patent Respiratory effort is even, unlabored, Respiratory pattern is regular, symmetrical. GI: Reports bloody stool, since 2 days ago. : No signs and/or symptoms were reported regarding the genitourinary system. EENT: No signs and/or symptoms were reported regarding the EENT system. Derm: Skin is intact, is healthy with good turgor, Skin is pink, warm \T\ dry. Musculoskeletal: No signs and/or symptoms reported regarding the musculoskeletal system. 22:59 Reassessment: Patient appears in no apparent distress at this time. No changes from al5 previously documented assessment. Patient and/or family updated on plan of care and expected duration. Pain level reassessed. Patient is alert, oriented x 3, equal unlabored respirations, skin warm/dry/pink. 12/24 00:28 Reassessment: Patient appears in no apparent distress at this time. Patient and/or al5 family updated on plan of care and expected duration. Pain level reassessed. Patient is alert, oriented x 3, equal unlabored respirations, skin warm/dry/pink. Patient states symptoms have improved. Vital Signs: 12/23 19:48 BP 170 / 62; Pulse 74; Resp 20; Temp 98.4; Pulse Ox 92% ; Weight 86.18 kg; Height 5 ft. cp4 3 in. ; Pain 5/10; 21:30 BP 164 / 65; Pulse 68; Resp 18; Pulse Ox 93% ; al5 22:00 BP 170 / 65; Pulse 72; Resp 18; Pulse Ox 92% on R/A; al5 22:30 BP 166 / 59; Pulse 70; Resp 18; Pulse Ox 93% on R/A; al5 23:00 BP 149 / 60; Pulse 77; Resp 18; Pulse Ox 93% ; al5 23:30 BP 187 / 59; Pulse 82; Resp 17; Pulse Ox 94% on R/A; al5 12/24 00:00 BP 143 / 66; Pulse 69; Resp 16; Pulse Ox 93% ; al5 00:30 BP 141 / 53; Pulse 72; Resp 16; Pulse Ox 92% ; al5 12/23 19:48 Body Mass Index 33.66 (86.18 kg, 160.02 cm) cp4 12/23 19:48 Pain Scale: Adult cp4 [place] Coma Score: 00:26 Eye Response: spontaneous(4). Motor Response: obeys commands(6). Verbal Response: sp4 oriented(5). Total: 15. ED Course: 12/23 19:44 Patient arrived in ED. gm2 19:50 Triage completed. cp4 19:50 Arm band placed on right wrist. Patient placed in waiting room. cp4 20:05 Pipo De Dios MD is Attending Physician. sp4 20:48 XRAY Chest (1 view) In Process Unspecified. EDMS 21:00 Manju Rincon, JOE is Primary Nurse. al5 21:00 Patient has correct armband on for positive identification. Placed in gown. Bed in low al5 position. Call light in reach. Side rails up X 1. Provided Education on: plan of care. Client placed on continuous cardiac and pulse oximetry monitoring. NIBP monitoring applied. 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 Pulse ox on. 21:00 No provider procedures requiring assistance completed. Inserted saline lock: 20 gauge al5 in right antecubital area, using aseptic technique. Blood collected. Flushed with 10 mL NS. Patient maintains SpO2 saturation greater than 95% on room air. 05 00:29 Gurdeep Seay MD is Referral Physician. sp4 00:31 Pelvis Angio In Process Unspecified. EDMS 00:32 Abdomen Angio In Process Unspecified. EDMS 01:04 IV discontinued, intact, bleeding controlled, No redness/swelling at site. Pressure al5 dressing applied. Administered Medications: 12/23 21:16 Drug: Pantoprazole IV 8 mg/hr IV at 25 ml/hr continuous; (Standard dilution is 80 mg in al5 250 mL NS) Route: IV; Rate: 25 ml/hr; Site: right antecubital; 12/24 01:04 Follow up: Response: No adverse reaction; IV Status: Order to discontinue infusion; IV al5 Intake: 100ml 12/23 21:16 Drug: Pantoprazole IVP 80 mg IVP once Route: IVP; Site: right antecubital; al5 12/24 00:44 Follow up: Response: No adverse reaction al5 12/23 21:16 Drug: Famotidine IVP 20 mg IVP once; dilute with 10 mL 0.9% NaCl; give over 2 minutes al5 Route: IVP; Site: right antecubital; 12/24 00:44 Follow up: Response: No adverse reaction; Pain is decreased al5 Medication: 12/23 21:22 VIS not applicable for this client. me1 Intake: 12/24 01:04 IV: 100ml; Total: 100ml. al5 Outcome: 00:29 Discharge ordered by . sp4 01:04 Discharged to home ambulatory, with significant other, al5 01:04 Condition: good 01:04 Discharge instructions given to patient, Instructed on discharge instructions, follow up and referral plans. medication usage, Demonstrated understanding of instructions, follow-up care, medications, Prescriptions given X 1, 01:04 Patient left the ED. al5 Signatures: Dispatcher [employer] Pipo Santacruz MD MD sp4 Rhina Bruce, RN RN me1 Kierra Flores 4 Becky Ruiz 2 Manju Rincon RN RN al5 Corrections: (The following items were deleted from the chart) 12/23 21:22 19:48 Chief complaint: Patient states: bloody stools for 2 days and reports chest pain me1 that started 30 minutes ago. cp4 12/24 00:28 12/23 23:25 BP 149 / 60; Pulse 77bpm; Resp 18bpm; Pulse Ox 93%; cp4 al5 12/24 00:31 12/23 23:25 In radiology for Abdomen Pelvis W [id number]+[email or web address]. EDMS EDMS 12/24 00:44 00:28 Reassessment: Patient appears in no apparent distress at this time. No changes al5 from previously documented assessment. Patient and/or family updated on plan of care and expected duration. Pain level reassessed. Patient is alert, oriented x 3, equal unlabored respirations, skin warm/dry/pink. al5
--- NOTE | 2024-12-24 01:42 | RAD REPORT ---
EXAM DESCRIPTION: CT ABDOMEN PELVIS WITH IV CONTRAST 12/24/2024 12:14 AM CDT CLINICAL HISTORY: 69 years, Female, CT Angio to eval for GI bleed COMPARISON: None PROCEDURE: Multiple transaxial tomograms of the abdominal aorta were performed utilizing 3 mm slight thickness a t 3 mm interval reconstruction from the lung bases to the ischial tuberosities, before and after the administration of large bolus of IV contrast for complete opacification of the abdominal aorta an d iliac arteries. 2-D and 3-D multiplanar reformats, volume rendering technique and maximum intensity projection images were generated and reviewed. An individualized dose optimization technique, Automated Exposure Control, was utilized for the perfo rmed procedure. Findings: Atherosclerotic calcifications in the abdominal aorta without aneurysmal dilatation or evidence of di ssection. There is a patent stent within the infrarenal portion of the abdominal aorta. Atherosclerotic calcifications in bilateral common iliac arteries without significant stenosis and/or occlusion. The celiac trunk demonstrated atherosclerotic disease at the origin with the presence of a stent. 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 Via collaterals inferior mesen teric artery feeds the SMA. There are single bilateral renal arteries with the presence of minimal peripheral atheromatous plaque at the origin/proximal aspect with no evidence for significant stenosis. Lung bases: Lung parenchyma demonstrate minimal compressive atelectatic changes. Liver: The liver demonstrated presence of decreased attenuation corresponding to mild fatty infiltrat ion. Gallbladder: Surgical clips within the gallbladder fossa corresponding to previous cholecystectomy. N o significant biliary duct dilatation. Adrenal glands: The adrenal glands demonstrate to be normal. Pancreas: The pancreas demonstrate to be normal. Spleen: The spleen demonstrate to be within normal limits. Kidneys: The kidneys demonstrate normal uptake of contrast media. There is no evidence for nephroli thiasis and/or hydronephrosis. There is a medial mid/lower pole right renal cyst measuring 1.1 cm on image 67 GI: Grossly the unopacified stomach, small bowel and large bowel demonstrate to be within normal limi ts. No evidence for bowel dilatation and/or free air. The appendix was not visualized. The left-sided colon/sigmoid colon demonstrates presence of minimal diverticulosis. : The urinary bladder demonstrate to be suboptimal distention. There is a cystic structure within t he base of the urinary bladder/urethra possibility of ureteral diverticulum could be of consideration on axial image 134/159 less likely the possibility of mullerian duct cyst could be of c onsideration. Genitalia: The uterus demonstrate to be within normal limits. There are normal adnexal structures. Retroperitoneum: There is no retroperitoneal lymphadenopathy. There is no evidence for ascites and/or abnormal fluid collections. Bones: The bones demonstrate to be demineralized. The lumbar spine demonstrate minimal degenerative c hanges lower lumbar spine with a finding suggesting fusion of the L5/S1 disc level. Soft tissues: The soft tissues demonstrate to be unremarkable. IMPRESSION: Occlusion of the superior mesenteric artery. There is stenosis within the origin of the inferior mese nteric artery. Via collaterals from inferior mesenteric artery feeds the SMA. Atherosclerotic disease in the abdominal aorta with patent stent within the infrarenal portion of the abdominal aorta just slightly above the origin of the inferior mesenteric artery. Mild fatty infiltration of the liver. Status post cholecystectomy. Right Bosniak I benign renal cyst measuring 1.1 cm. No follow-up imaging is recommended. JACR 2018 Fe b; 264-273, Management of the Incidental Renal Mass on CT, [employer] 2020; [id number], Bosniak Classification of Cystic Renal Masses, Version 2019. Cystic structure within the base of the urinary bladder/urethra possibility of ureteral diverticulum could be of consideration less likely the possibility of Mullerian duct cyst could be of consideration, if concern MRI could be of assistance. Electronically signed by: You De León MD 12/24/2024 12:44 AM CDT Due to temporary technical issues with the PACS/[employer] reporting system, reports are being swetha d by the in-house radiologist without review as a courtesy to ensure prompt reporting the interpreting radiologist is fully responsible for the content of the report. Transcribed Date/Time: 12/24/2024 1:42 AM
[2024-12-24 09:01] VITALS: TEMP 98.4
[2024-12-24 09:14] VITALS: BP 141/53; O2SAT 92
--- NOTE | 2024-12-25 11:46 | EKG ---
Test Date: 2024-12-23 Test Time: 19:56:04 Elevator Constructor Electric: DAVID MEASUREMENT RESULTS: Intervals: Rate: 76 [place]: 148 QRSD: 72 QT: 392 QTc: 441 [place]: P: 83 [place]: 148 QRS: 74 T: 53 INTERPRETIVE STATEMENTS: Normal sinus rhythm Normal ECG No previous ECG available for comparison Electronically Signed On 12-25-24 11:42:22 CDT by Brent Adair
== END 2024-12-24 01:04 | disposition home or self-care (01) ==
LOC: ER 19:41
DX: K92.2 Gastrointestinal hemorrhage, unspecified (principal); R07.89 Other chest pain; I10 Essential (primary) hypertension; I25.10 Atherosclerotic heart disease of native coronary artery without angina pectoris; I73.9 Peripheral vascular disease, unspecified; F17.210 Nicotine dependence, cigarettes, uncomplicated; Z79.01 Long term (current) use of anticoagulants
CPT/HCPCS: 36415; 71045; 72191; 74175; 74177; 80048; 80076; 83735; 83880; 84484; 85025; 85610; 86850; 86900; 86901; 93005; 96365; 96366; 96375; 99285; J2470; J7050; Q9967